=== PATIENT | male | born 1975 | race Hispanic/Latino ===

== ENCOUNTER 2018-03-08 07:26 | Emergency (ER) | payer OTHER, SELFPAY ==
[2018-03-08 07:28] VITALS: BP 137/78; PULSE 89; RESP 16; TEMP 36.9; O2SAT 98; BMI 29.0
--- NOTE | 2018-03-08 08:23 | CT_ITS ---
STUDY: CT BRAIN WITHOUT CONTRAST REASON FOR EXAM: Male, 43 years old. Weakness dizziness and chills. RADIATION DOSAGE (If Supplied By Facility): CTDIvol = ( 44.99 ) mGy, DLP = ( 846.73 ) mGycm TECHNIQUE: Transaxial CT imaging of the brain was performed without administration of intravenous contrast material. Individualized dose optimization techniques were used for this CT. COMPARISON: None. FINDINGS: Normal soft tissue structures. Normal calvarium. Normal size ventricles and extra-axial spaces for the patient's age. Normal white matter tracts of the cerebral hemispheres. Normal basal ganglia and thalami. Normal brainstem. Normal cerebellum. There is no intracranial hemorrhage. There are no findings of an acute ischemic infarction. Mild degree of nodular mucosal thickening along the inferior aspect of the left maxillary sinus. CT/Brain/Head without Contrast IMPRESSION: Normal unenhanced CT scan of the brain. Electronically Signed: Jose Castaneda MD at 9:15 EDT Tel [phone], Service support ,
--- NOTE | 2018-03-08 08:25 | ED.VISSUMM ---
- ER Visit Summary Date of Service: 03/08/18 Chief Complaint: Headache History of Present Illness: The patient is a 43 M Kazakh-speaking male with history of hypertension who presents for a headache since last night. Patient has a friend present helping with translation. Patient states last night he began having a dull headache encompassing the entire head. Headache has come and gone. This morning the headache worsened and he has associated blurry vision, having to take off his glasses because he felt he could not see with them. He also is complaining of dizziness and had an episode of chills on the way to the hospital. Denies cough, sinus pressure, rhinorrhea, abdominal pain, nausea or vomiting. No chest pain or shortness of breath. No numbness, weakness or tingling in the arms or legs. No history of prior headaches. 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 No history of head trauma. No recent travel outside the country. Physical Examination: Vital signs: afebrile, hemodynamically stable, no hypoxia on room air General: well nourished, well developed, in no distress, laying in bed with the lights on Skin: warm, dry, no rash, no pallor HEENT: normocephalic and atraumatic; tenderness to palpation at the bilateral temples. No temporal artery tenderness, no vesicular rash. PERRL, EOMI, no nystagmus. Tacky mucous membranes, no oropharyngeal lesions Cardiovascular: regular rate and rhythm without murmurs, no peripheral edema, 2+ pulses all distal extremities Respiratory: No increased work of breathing, lungs are clear to auscultation bilaterally, no rales, rhonchi or wheezing Abdominal: Abdomen is soft, mildly tender in the epigastrium, with normoactive bowel sounds, no guarding or rebound, no masses MSK: Moves all extremities, no deformities, normal strength Neuro: Awake and alert, oriented ?4. No facial droop, sensation and motor function intact and symmetric, NIH = 0 Test Results: Abnormal Lab Results 03/08/18 03/08/18 08:00 08:00 WBC 12.5 H RBC 5.80 Hgb 17.6 H Hct 51.6 MCV 89.0 MCH 30.3 MCHC 34.1 RDW 13.5 RDW Differential 43.9 Plt Count 189 MPV 11.5 Immature Gran % (Auto) 0.200 Neut % (Auto) 73.3 H Lymph % (Auto) 13.6 L [place] % (Auto) 12.1 H Eos % (Auto) 0.6 Baso % (Auto) 0.2 Absolute Neuts (auto) 9.2 H Absolute Lymphs (auto) 1.71 Total Counted Not Reportable Diff Path Review December foll Sodium 141 Potassium 3.4 L Chloride 103 Carbon Dioxide 28.0 Anion Gap 10 BUN 14 Creatinine 1.00 Estim Creat Clear Calc 80.58 Est GFR (MDRD) Af Amer 106 Est GFR (MDRD) Non-Af 87 BUN/Creatinine Ratio 14.0 Glucose 112 H Calcium 9.1 Clinical Impression(s) from Imaging Studies Brain CT 03/08/18 08:23 IMPRESSION: Normal unenhanced CT scan of the brain. Electronically Signed: Jose Castaneda MD at 9:15 EDT Tel [phone], Service support , Emergency Department Course and Treatment: Patient presents with a headache with complaint of vision changes and dizziness. Differential includes dehydration, tension headache, migraine headache, intracranial hemorrhage or mass lesion, viral or bacterial infection. 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 He was given Toradol, Benadryl and Reglan for headache. Labs showed a mild leukocytosis without any significant neutrophilia. No electrolyte derangements or renal dysfunction on BMP. CT of the head showed no masses or intracranial hemorrhage. On reevaluation patient's headache was improved. He stated he has a long history of acid reflux and requested medication for this. This history of GERD corresponds to his mild epigastric tenderness. Patient was given a prescription for Pepcid and follow-up with GI. Patient's friend provided additional history during the reevaluation that the patient had attempted to hang himself 4 years ago and believes he suffered some nerve damage in the neck, with resulting headaches radiating from the occipital region around to the frontal region. Upon further questioning, patient has had similar headaches to the one he has today in the past. Patient was advised to follow-up with his doctor regarding these recurrent headaches. No life-threatening causes of the headache identified, including exam and workup not consistent with meningitis or intracranial hemorrhage. He was discharged home with a work note for today. He was given a prescription for naproxen and Pepcid. Discharge home with symptoms resolved. Treatment Plan: [] Disposition: [] Impression: Acute cephalgia, GERD This note was generated with [employer] dictation software. It may contain incorrect words, spelling, and punctuation that were not noted in review of the chart prior to signing ED Disposition - Plan for ED Patient: Disposition: Home or Assisted Living Chief Complaint: Headache Instructions: ED GERD, ED Cephalgia Unspecified Prescriptions: Naproxen [Naprosyn] 500 mg PO BID PRN #20 tab Famotidine [Pepcid] 20 mg PO BID #28 tab Referrals: Tal Canela MD [STAFF PHYSICIAN] - 3-5 Days if not improving Kosta Morrison MD [STAFF PHYSICIAN] - As Needed Additional Instructions: You may use naproxen as needed for further headache. Drink plenty of fluids to stay hydrated, especially while you are working in the summer heat. Follow-up with the doctor on this paperwork if you are not having improvement in her headache in 3-5 days. You may use the Pepcid for your acid reflux. You may follow-up with the GI doctor on this paperwork for further evaluation of your ongoing acid reflux symptoms.
--- NOTE | 2018-03-08 08:28 | ED.DCSUM_ITS ---
- ER Visit Summary Date of Service: 03/08/18 Chief Complaint: Headache History of Present Illness: The patient is a 43 M Czech-speaking male with history of hypertension who presents for a headache since last night. Patient has a friend present helping with translation. Patient states last night he began having a dull headache encompassing the entire head. Headache has come and gone. This morning the headache worsened and he has associated blurry vision, having to take off his glasses because he felt he could not see with them. He also is complaining of dizziness and had an episode of chills on the way to the hospital. Denies cough, sinus pressure, rhinorrhea, abdominal pain, nausea or vomiting. No chest pain or shortness of breath. No numbness, weakness or tingling in the arms or legs. No history of prior headaches. 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 No history of head trauma. No recent travel outside the country. Physical Examination: Vital signs: afebrile, hemodynamically stable, no hypoxia on room air General: well nourished, well developed, in no distress, laying in bed with the lights on Skin: warm, dry, no rash, no pallor HEENT: normocephalic and atraumatic; tenderness to palpation at the bilateral temples. No temporal artery tenderness, no vesicular rash. PERRL, EOMI, no nystagmus. Tacky mucous membranes, no oropharyngeal lesions Cardiovascular: regular rate and rhythm without murmurs, no peripheral edema, 2 + pulses all distal extremities Respiratory: No increased work of breathing, lungs are clear to auscultation bilaterally, no rales, rhonchi or wheezing Abdominal: Abdomen is soft, mildly tender in the epigastrium, with normoactive bowel sounds, no guarding or rebound, no masses MSK: Moves all extremities, no deformities, normal strength Neuro: Awake and alert, oriented ?4. No facial droop, sensation and motor function intact and symmetric, NIH = 0 Test Results: Abnormal Lab Results 03/08/18 03/08/18 08:00 08:00 WBC 12.5 H RBC 5.80 Hgb 17.6 H Hct 51.6 MCV 89.0 MCH 30.3 MCHC 34.1 RDW 13.5 RDW Differential 43.9 Plt Count 189 MPV 11.5 Immature Gran % (Auto) 0.200 Neut % (Auto) 73.3 H Lymph % (Auto) 13.6 L [place] % (Auto) 12.1 H Eos % (Auto) 0.6 Baso % (Auto) 0.2 Absolute Neuts (auto) 9.2 H Absolute Lymphs (auto) 1.71 Total Counted Not Reportable Diff Path Review December foll Sodium 141 Potassium 3.4 L Chloride 103 Carbon Dioxide 28.0 Anion Gap 10 BUN 14 Creatinine 1.00 Estim Creat Clear Calc 80.58 Est GFR (MDRD) Af Amer 106 Est GFR (MDRD) Non-Af 87 BUN/Creatinine Ratio 14.0 Glucose 112 H Calcium 9.1 Clinical Impression(s) from Imaging Studies Brain CT 03/08/18 08:23 IMPRESSION: Normal unenhanced CT scan of the brain. Electronically Signed: Jose Castaneda MD at 9:15 EDT Tel [phone], Service support , Emergency Department Course and Treatment: Patient presents with a headache with complaint of vision changes and dizziness. Differential includes dehydration, tension headache, migraine headache, intracranial hemorrhage or mass lesion, viral or bacterial infection. 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 He was given Toradol, Benadryl and Reglan for headache. Labs showed a mild leukocytosis without any significant neutrophilia. No electrolyte derangements or renal dysfunction on BMP. CT of the head showed no masses or intracranial hemorrhage. On reevaluation patient's headache was improved. He stated he has a long history of acid reflux and requested medication for this. This history of GERD corresponds to his mild epigastric tenderness. Patient was given a prescription for Pepcid and follow-up with GI. Patient's friend provided additional history during the reevaluation that the patient had attempted to hang himself 4 years ago and believes he suffered some nerve damage in the neck, with resulting headaches radiating from the occipital region around to the frontal region. Upon further questioning, patient has had similar headaches to the one he has today in the past. Patient was advised to follow-up with his doctor regarding these recurrent headaches. No life- threatening causes of the headache identified, including exam and workup not consistent with meningitis or intracranial hemorrhage. He was discharged home with a work note for today. He was given a prescription for naproxen and Pepcid. Discharge home with symptoms resolved. Treatment Plan: [] Disposition: [] Impression: Acute cephalgia, GERD This note was generated with [employer] dictation software. It may contain incorrect words, spelling, and punctuation that were not noted in review of the chart prior to signing ED Disposition - Plan for ED Patient: Disposition: Home or Assisted Living Chief Complaint: Headache Instructions: ED GERD, ED Cephalgia Unspecified Prescriptions: Naproxen [Naprosyn] 500 mg PO BID PRN #20 tab Famotidine [Pepcid] 20 mg PO BID #28 tab Referrals: Tal Canela MD [STAFF PHYSICIAN] - 3-5 Days if not improving Kosta Morrison MD [STAFF PHYSICIAN] - As Needed Additional Instructions: You may use naproxen as needed for further headache. Drink plenty of fluids to stay hydrated, especially while you are working in the summer heat. Follow-up with the doctor on this paperwork if you are not having improvement in her headache in 3-5 days. You may use the Pepcid for your acid reflux. You may follow-up with the GI doctor on this paperwork for further evaluation of your ongoing acid reflux symptoms.
[2018-03-08 08:37] LABS: Absolute Lymphocyte Count 1.71 X10^3/ul (0.83-4.51); Absolute Neutrophil Count 9.2 X10^3/uL (2.0-7.7); Basophil# 0.02 X10^3/uL; Basophil% 0.2 % (0-1); Eosinophil# 0.07 X10^3/uL; Eosinophils% 0.6 % (0-5); Hematocrit 51.6 % (40-54); Hemoglobin 17.6 g/dl (13.0-16.5); Lymphocyte # 1.71 X10^3/ul (4.0); Lymphocyte % 13.6 % (19-41); Mean Corp Hgb Conc 34.1 g/gl (32-36); Mean Corpuscular Hgb 30.3 pg (27.0-32.0); Mean Platelet Vol. 11.5 fl (6.2-12.0); Monocyte# 1.52 X10^3/uL; Monocyte% 12.1 % (0-10); Neutrophil # 9.19 X10^3/uL (2.7-7.7); Neutrophil % 73.3 % (47-70); Platelet Count 189 K/mm3 (150-450); RBC Distribution Width CV 13.5 % (11.6-14.6); RBC Distribution Width SD 43.9 fl (35.1-43.9); White Blood Count 12.5 K/mm3 (4.4-11.0)
[2018-03-08] MEDS: 0.9% Normal Saline 1,000 ML 999 ML IV (08:37)
[2018-03-08] MEDS: DiphenhydrAMINE 50 MG/ML Syringe 25 MG IV (08:37)
[2018-03-08 08:38] LABS: Differential Indicated SCAN CRITERIA MET; POSITIVE COUNT NO; POSITIVE DIFFERENTIAL YES; POSITIVE MORPHOLOGY NO
[2018-03-08] MEDS: Ketorolac 30 MG/ML Syringe 15 MG IV (08:38)
[2018-03-08] MEDS: Metoclopramide 10 MG/2 ML Vial IV (08:39)
[2018-03-08 08:43] LABS: Anion Gap 10 (5-15); BUN 14 mg/dL (7-18); Calcium,Total 9.1 mg/dL (8.5-10.1); Chloride 103 mmol/L (98-107); EST Glomerular Filtration Rate 87 mL/min (>60); Est Glom Filt Rate - Afr Amer 106 mL/min (>60); Estimated Creatinine Clearance 80.58 ml/min; Glucose 112 mg/dL (74-106); Potassium 3.4 mmol/L (3.5-5.1); Sodium Level 141 mmol/L (136-145)
[2018-03-08 09:36] VITALS: BP 140/78; PULSE 80; RESP 18; O2SAT 98
--- NOTE | 2018-03-08 09:48 | ED.DEP ---
ED Disposition - Plan for ED Patient: Disposition: Home or Assisted Living Chief Complaint: Headache Instructions: ED Cephalgia Unspecified, ED GERD Prescriptions: Naproxen [Naprosyn] 500 mg PO BID PRN #20 tab Famotidine [Pepcid] 20 mg PO BID #28 tab Referrals: Kosta Morrison MD [STAFF PHYSICIAN] - As Needed Tal Canela MD [STAFF PHYSICIAN] - 3-5 Days if not improving Additional Instructions: You may use naproxen as needed for further headache. Drink plenty of fluids to stay hydrated, especially while you are working in the summer heat. Follow-up with the doctor on this paperwork if you are not having improvement in her headache in 3-5 days. You may use the Pepcid for your acid reflux. You may follow-up with the GI doctor on this paperwork for further evaluation of your ongoing acid reflux symptoms.
[2018-03-08 10:05] VITALS: BP 122/77; PULSE 64; RESP 17; O2SAT 98
[2018-03-08 16:11] LABS: Pathologist Review Reviewed
== END 2018-03-08 10:25 | disposition home or self-care (01) ==
PROVIDERS: Emergency Provider Emergency Medicine
DX: R51 Headache (principal); K21.9 Gastro-esophageal reflux disease without esophagitis; I10 Essential (primary) hypertension; Z79.899 Other long term (current) drug therapy
CPT/HCPCS: 70450; 80048; 85025; 96361; 96374; 96375; 99284; J7030; A4216